=== PATIENT | female | born 1990 | race African-American/Black ===

== ENCOUNTER 2016-07-07 14:28 | Emergency (ER) | payer SELFPAY ==
[2016-07-07] MEDS ORDERED: DIPH/PERTUSS(ACELL)/TETANUS VAC/PF 0.5 ML SYR (>=10YO) IM ONE ×2 (14:35→18:34)
--- NOTE | 2016-07-07 14:35 | ER Document Report ---
ED Medical Screen (RME) - General Stated Complaint: HAND LACERATIONS Notes: 26 yo female c/o laceration to right hand and left hand. fish tank broke. 3cm laceration to right lateral hand. no active bleeding. smaller lacerations to left palm. Tetnus status not UTD TRAVEL OUTSIDE OF THE [place] IN LAST 30 DAYS: No - Related Data Allergies/Adverse Reactions: No Known Allergies Allergy (Verified 07/07/16 14:31) Past Medical History Renal/ Medical History: Reports: Hx Ovarian Cysts Psychiatric Medical History: Denies: Hx Depression Past Surgical History: Reports: Hx Dilation and Curettage, Hx Gynecologic Surgery - january 2013, L ovarian cyst removal 08/01/2014. - Immunizations Hx Diphtheria, Pertussis, Tetanus Vaccination: Yes
[2016-07-07] MEDS ORDERED: OXYCODONE-ACETAMINOPHEN 5-325 MG TABLET PO ONE (16:10)
[2016-07-07] MEDS ORDERED: KETOROLAC TROMETHAMINE 60 MG/2 ML SDV IM ONE (18:00)
[2016-07-07] MEDS ORDERED: LIDOCAINE 1% INJ-PF (10 MG/ML) 30 ML SDV INJ ONE (18:02)
[2016-07-07] MEDS ORDERED: HYDROCODONE/ACETAMINOPHEN 5-325 MG TABLET PO ONE (18:33)
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
[2016-07-07 20:19] VITALS: BP 122/68
== END 2016-07-07 19:12 | disposition home or self-care (01) ==
LOC: ER 14:28
PROC: 0HQFXZZ Repair Right Hand Skin, External Approach (ICD-10-PCS; principal; 2016-07-07)
DX: S61.412A Laceration without foreign body of left hand, initial encounter (principal); S61.411A Laceration without foreign body of right hand, initial encounter; Y04.0XXA Assault by unarmed brawl or fight, initial encounter; Z23 Encounter for immunization
CPT/HCPCS: 12002; 99283; 96372; 90471; 73120; 90715; J1885; J3490

== ENCOUNTER 2016-07-10 08:00 | Emergency (ER) | payer SELFPAY ==
--- NOTE | 2016-07-10 08:31 | ER Document Report ---
ED GI/ - General Chief Complaint: Abdominal Pain Stated Complaint: ABDOMINAL PAIN Notes: 26 yo female c/o right flank/RUQ pain x 2-3 days. pain is constant and sharp. aggravated w/ any movement, eating. reports fever 102 last night. +n/v/d. pt reports she drinks beer occasionally. last ETOH was 1/2 beer last week. pt was recently started on Keflex for hand laceration. TRAVEL OUTSIDE OF THE [place] IN LAST 30 DAYS: No - HPI Patient complains to provider of: Abdominal pain, Diarrhea, Vomiting Onset: Other - 3 days Timing/Duration: Gradual, Persistent Quality of pain: Sharp Pain Level: 5 Location: RUQ, Right flank Adult Front & Back Diagram: 1 - pain 2 - pain Vaginal bleeding (Compared to normal period): None Associated symptoms: Nausea. denies: Chest pain, Dysuria Exacerbated by: Movement, Food Relieved by: Denies Similar symptoms previously: No Recently seen / treated by doctor: Yes - ED for sutures - Related Data Allergies/Adverse Reactions: No Known Allergies Allergy (Verified 07/10/16 08:05) Past Medical History - General Information source: Patient - Social History Smoking Status: Current Every Day Smoker Chew tobacco use (# tins/day): Yes - 1/2ppd Frequency of alcohol use: Social Drug Abuse: None Lives with: Family Family History: Reviewed & Not Pertinent Patient has suicidal ideation: No Patient has homicidal ideation: No - Medical History Medical History: Negative Renal/ Medical History: Reports: Hx Ovarian Cysts. Denies: Hx Peritoneal Dialysis Psychiatric Medical History: Denies: Hx Depression Past Surgical History: Reports: Hx Dilation and Curettage, Hx Gynecologic Surgery - january 2013, L ovarian cyst removal 08/01/2014. - Immunizations Hx Diphtheria, Pertussis, Tetanus Vaccination: Yes Review of Systems - Review of Systems Constitutional: No symptoms reported EENT: No symptoms reported Cardiovascular: No symptoms reported Respiratory: No symptoms reported Gastrointestinal: See HPI, Abdominal pain, Vomiting Genitourinary: No symptoms reported Female Genitourinary: No symptoms reported Musculoskeletal: No symptoms reported Skin: No symptoms reported Hematologic/Lymphatic: No symptoms reported Neurological/Psychological: No symptoms reported Physical Exam - Vital signs Vitals: Temp Pulse Resp BP Pulse Ox 98.1 F 75 18 134/81 H 99 07/10/16 08:05 07/10/16 08:05 07/10/16 08:05 07/10/16 08:05 07/10/16 08:05 Interpretation: Normal - General General appearance: Alert In distress: Mild - tearful - HEENT Head: Normocephalic, Atraumatic Eyes: Normal Pupils: PERRL - Respiratory Respiratory status: No respiratory distress Chest status: Nontender Breath sounds: Normal Chest palpation: Normal - Cardiovascular Rhythm: Regular Heart sounds: Normal auscultation Murmur: No - Abdominal Inspection: Normal Distension: No distension Bowel sounds: Normal Tenderness: Tender - RUQ, right lateral flank Organomegaly: No organomegaly - Back Back: Normal, Nontender. No: CVA tenderness - Extremities General upper extremity: Normal inspection, Nontender, Normal color, Normal ROM , Normal temperature General lower extremity: Normal inspection, Nontender, Normal color, Normal ROM , Normal temperature, Normal weight bearing. No: Gopi's sign - Neurological Neuro grossly intact: Yes Cognition: Normal Orientation: AAOx4 João Coma Scale Eye Opening: Spontaneous João Coma Scale Verbal: Oriented João Coma Scale Motor: Obeys Commands João Coma Scale Total: 15 Speech: Normal Motor strength normal: LUE, RUE, LLE, RLE Sensory: Normal - Psychological Associated symptoms: Normal affect, Normal mood - Skin Skin Temperature: Warm Skin Moisture: Dry Skin Color: Normal Course - Re-evaluation Re-evalutation: 07/10/16 08:38 pt evaluated. labs, IVF and meds ordered. abdomen is soft, pt is afebrile. low suspicion for acute abdomen or sepsis. will continue to monitor. 07/10/16 09:59 labs unremarkable. urine showing small amount of blood. Lipase normal. low suspicion for acute cholcystitis, appendicitis, pancreatitis. will get renal US. 07/10/16 10:40 pt continues to complain of nausea after the zofran. pt refused Toradol saying it makes her more nauseated. and she is too nauseous to take PO percocet. 07/10/16 11:[address] unremarkable. with normal labs and normal CT, VSS, low suspicion for acute abdomen or sepsis, pt is stable for discharge and outpatient follow up. pt will be discharged with oral pain and anti nausea meds, and instructions to follow up with primary care if pain persists. pt agreeable with plan - Vital Signs Vital signs: Temp Pulse Resp BP Pulse Ox 98.1 F 75 18 134/81 H 99 07/10/16 08:05 07/10/16 08:05 07/10/16 08:05 07/10/16 08:05 07/10/16 08:05 - Laboratory Result Diagrams: 07/10/16 08:55 07/10/16 08:55 Laboratory results interpreted by me: 07/10/16 07/10/16 08:55 09:18 RBC 5.56 H Hgb 11.8 L MCV 67 L MCH 21.3 L MCHC 31.8 L RDW 14.5 H Urine Protein 100 H Urine Blood SMALL H Discharge - Discharge Clinical Impression: Abdominal pain Qualifiers: Abdominal location: right upper quadrant Qualified Code(s): R10.11 - Right upper quadrant pain Condition: Stable Disposition: HOME, SELF-CARE Instructions: Abdominal Pain ([facility]), Antinausea Medication ([facility]), Oral Narcotic Medication ([facility]) Additional Instructions: your labs and CT were normal today I do not see a cause for your discomfort take your pain med and anti nausea meds as needed and follow up with your primary care provider on Tuesday for further evaluation return to ER for any worsening of your condition Prescriptions: Oxycodone HCl/Acetaminophen [Percocet 5-325 mg Tablet] 1 - 2 tab PO ASDIR PRN # 15 tablet PRN Reason: Promethazine HCl [Phenergan 25 mg Tablet] 25 mg PO Q6H PRN #15 tablet PRN Reason:
[2016-07-10] MEDS ORDERED: NORMAL SALINE 1000 ML 1,000 ML IV ONE (08:32)
[2016-07-10] MEDS ORDERED: KETOROLAC TROMETHAMINE INJ/PF 30 MG/1 ML SDV IV ONE (08:41)
[2016-07-10] MEDS ORDERED: ONDANSETRON HCL INJ/PF 4 MG/2 ML SDV IV ONE (08:41)
[2016-07-10 09:11] LABS: ABSOLUTE BASOPHILS # (AUTO) 0.1 10^3/uL (0.0-0.2); ABSOLUTE EOSINOPHILS # (AUTO) 0.1 10^3/uL (0.0-0.6); ABSOLUTE LYMPHOCYTES (AUTO) 1.4 10^3/uL (0.5-4.7); ABSOLUTE NEUT (AUTO) 6.1 10^3/uL (1.7-8.2); BASOPHILS % (AUTO) 0.8 % (0-2); EOSINOPHILS % (AUTO) 1.4 % (0-6); HEMATOCRIT 37.1 % (36.0-47.0); HEMOGLOBIN 11.8 g/dL (12.0-15.5); HGB HCT DIFFERENCE -1.7; MEAN CORPUSCULAR HEMOGLOBIN 21.3 pg (27.0-33.4); MEAN CORPUSCULAR HGB CONC 31.8 g/dL (32.0-36.0); MEAN CORPUSCULAR VOLUME 67 fl (80-97); MONOCYTES % (AUTO) 11.4 % (3-13); RED BLOOD COUNT 5.56 10^6/uL (3.72-5.28); RED CELL DISTRIBUTION WIDTH 14.5 % (11.5-14.0); SEGMENTED NEUTROPHILS % (AUTO) 70.4 % (42-78); WHITE BLOOD COUNT 8.6 10^3/uL (4.0-10.5)
[2016-07-10 09:35] LABS: ALANINE AMINOTRANSFERASE 26 U/L (9-52); ALBUMIN 4.1 g/dL (3.5-5.0); ALKALINE PHOSPHATASE 40 U/L (38-126); ANION GAP 11 (5-19); ASPARTATE AMINO TRANSFERASE 18 U/L (14-36); BILIRUBIN,TOTAL 0.6 mg/dL (0.2-1.3); BLOOD UREA NITROGEN 8 mg/dL (7-20); CALCIUM 9.8 mg/dL (8.4-10.2); CARBON DIOXIDE 24 mmol/L (22-30); CHLORIDE 107 mmol/L (98-107); CREATININE RESULT 1.02 mg/dL (0.52-1.25); GLUCOSE 91 mg/dL (75-110); LIPASE 33.7 U/L (23-300); POTASSIUM 4.6 mmol/L (3.6-5.0); SODIUM 142.1 mmol/L (137-145); TOTAL PROTEIN 6.3 g/dL (6.3-8.2)
[2016-07-10 09:38] LABS: APPEARANCE,URINE SLIGHTLY-CLOUDY; BILIRUBIN,URINE NEGATIVE (NEGATIVE); GLUCOSE, URINE NEGATIVE (NEGATIVE); KETONES,URINE NEGATIVE (NEGATIVE); LEUKOCYTE ESTERASE,URINE NEGATIVE (NEGATIVE); NITRITE,URINE NEGATIVE (NEGATIVE); PROTEIN,URINE 100 mg/dL (NEGATIVE); URINE SPECIFIC GRAVITY 1.004; UROBILINOGEN,URINE NEGATIVE mg/dL (<2.0)
[2016-07-10] MEDS ORDERED: MORPHINE SULFATE 10 MG/ML INJ IV ONE (10:42)
[2016-07-10] MEDS ORDERED: METOCLOPRAMIDE HCL INJ/PF 10 MG/2 ML SDV IV ONE (10:42)
[2016-07-10] MEDS ORDERED: DIPHENHYDRAMINE HCL 50 MG/ML VIAL IV ONE (10:42)
[2016-07-10 12:03] VITALS: BP 127/76
== END 2016-07-10 11:55 | disposition home or self-care (01) ==
LOC: ER 08:00
DX: R10.11 Right upper quadrant pain (principal); R10.9 Unspecified abdominal pain; R50.9 Fever, unspecified; F17.210 Nicotine dependence, cigarettes, uncomplicated
CPT/HCPCS: 99284; 96361; 96374; 96375; 36415; 83690; 84703; 85025; 80053; 81001; 76380; J2765; J2270; J2405; J7030

== ENCOUNTER 2016-09-12 19:49 | Emergency (ER) | payer OTHER ==
[2016-09-12] MEDS ORDERED: OXYCODONE HCL IR 5 MG TABLET PO ONE (20:42)
[2016-09-12] MEDS ORDERED: KETOROLAC TROMETHAMINE 60 MG/2 ML SDV IM ONE (21:57)
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
[2016-09-12 22:38] VITALS: BP 132/78
== END 2016-09-12 22:37 | disposition home or self-care (01) ==
LOC: ER 19:49
DX: S16.1XXA Strain of muscle, fascia and tendon at neck level, initial encounter (principal); S20.219A Contusion of unspecified front wall of thorax, initial encounter; S46.919A Strain of unspecified muscle, fascia and tendon at shoulder and upper arm level, unspecified arm, initial encounter; V43.52XA Car driver injured in collision with other type car in traffic accident, initial encounter
CPT/HCPCS: 99284; 96372; 71020; 72070; 73030; 70450; 72125; L0120; J1885

== ENCOUNTER 2016-09-17 12:48 | Emergency (ER) | payer OTHER ==
[2016-09-17] MEDS ORDERED: ACETAMINOPHEN 325 MG TABLET PO ONE (13:02)
[2016-09-17] MEDS ORDERED: OXYCODONE-ACETAMINOPHEN 5-325 MG TABLET PO ONE (13:44)
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
[2016-09-17 15:14] VITALS: BP 123/72
== END 2016-09-17 15:18 | disposition home or self-care (01) ==
LOC: ER 12:48
DX: S29.012A Strain of muscle and tendon of back wall of thorax, initial encounter (principal); S63.91XA Sprain of unspecified part of right wrist and hand, initial encounter; S73.102A Unspecified sprain of left hip, initial encounter; R68.84 Jaw pain; V89.2XXA Person injured in unspecified motor-vehicle accident, traffic, initial encounter
CPT/HCPCS: 99283

== ENCOUNTER → 2018-08-08 | Outpatient (CLI) | payer OTHER ==
[2018-08-08 10:16] LABS: ABSOLUTE BASOPHILS # (AUTO) 0.1 10^3/uL (0.0-0.2); ABSOLUTE EOSINOPHILS # (AUTO) 0.1 10^3/uL (0.0-0.6); ABSOLUTE LYMPHOCYTES (AUTO) 1.4 10^3/uL (0.5-4.7); ABSOLUTE MONOCYTES (AUTO) 0.4 10^3/uL (0.1-1.4); ABSOLUTE NEUT (AUTO) 4.3 10^3/uL (1.7-8.2); HEMATOCRIT 37.2 % (36.0-47.0); HEMOGLOBIN 11.8 g/dL (12.0-15.5); LYMPHOCYTES % (AUTO) 21.5 % (13-45); MEAN CORPUSCULAR HEMOGLOBIN 21.7 pg (27.0-33.4); MEAN CORPUSCULAR HGB CONC 31.9 g/dL (32.0-36.0); MEAN CORPUSCULAR VOLUME 68 fl (80-97); MONOCYTES % (AUTO) 6.9 % (3-13); PLATELET COUNT 277 10^3/uL (150-450); RED BLOOD COUNT 5.46 10^6/uL (3.72-5.28); RED CELL DISTRIBUTION WIDTH 14.1 % (11.5-14.0); SEGMENTED NEUTROPHILS % (AUTO) 67.6 % (42-78); TOTAL CELLS COUNTED % (AUTO) 100 %; WHITE BLOOD COUNT 6.4 10^3/uL (4.0-10.5)
[2018-08-08 10:36] LABS: ALANINE AMINOTRANSFERASE 15 U/L (9-52); ALKALINE PHOSPHATASE 48 U/L (38-126); ANION GAP 8 (5-19); ASPARTATE AMINO TRANSFERASE 18 U/L (14-36); BILIRUBIN,DIRECT 0.3 mg/dL (0.0-0.4); BILIRUBIN,TOTAL 0.5 mg/dL (0.2-1.3); BLOOD UREA NITROGEN 15 mg/dL (7-20); CALCIUM 9.5 mg/dL (8.4-10.2); CARBON DIOXIDE 24 mmol/L (22-30); CHLORIDE 107 mmol/L (98-107); CHOLESTEROL 140.46 mg/dL (0-200); GLUCOSE 91 mg/dL (75-110); POTASSIUM 4.6 mmol/L (3.6-5.0); SODIUM 139.4 mmol/L (137-145); TOTAL PROTEIN 6.5 g/dL (6.3-8.2); TRIGLYCERIDES 60 mg/dL (<150)
[2018-08-08 10:50] LABS: DIRECT LDL 59 mg/dL (<100)
== END ==
LOC: OD 09:01
DX: K04.7 Periapical abscess without sinus (principal)
CPT/HCPCS: 36415; 80053; 80061; 84443; 85025

== ENCOUNTER 2018-08-20 10:56 | Emergency (ER) | payer SELFPAY ==
[2018-08-20 11:04] VITALS: BP 129/72
[2018-08-20] MEDS ORDERED: LIDOCAINE 2% VISCOUS SOLN 20 ML UDCUP PO ONE (11:06)
[2018-08-20] MEDS ORDERED: KETOROLAC TROMETHAMINE 60 MG/2 ML SDV IM ONE (11:10)
--- NOTE | 2018-08-20 11:13 | ER Document Report ---
HPI - HPI Time Seen by Provider: 08/20/18 11:06 Pain Level: 5 Notes: Patient is a 28-year-old female who presents to the ED complaining of left lower dental pain #19 6mos, with increased pain that started x2 days. She has not noticed any obvious abscess or purulent discharge. Patient states that he is still able to eat and drink, but does have a decreased p.o. intake due to the pain. She has tried some [id number] meds with minimal relief. She was evaluated last month and was placed on clindamycin which did seem to work for her family doctor, but has yet to be scheduled for a dental appointment. No other concerns or complaints. Denies any headache, fever, head injury, neck pain, hoarseness, drooling, URI, sore throat, chest pain, palpitations, syncope, cough, shortness of breath, wheeze, dyspnea, abdominal pain, nausea/vomiting/diarrhea, urinary retention, dysuria, hematuria, or rash. - ROS Systems Reviewed and Negative: Yes All other systems reviewed and negative - REPRODUCTIVE Reproductive: DENIES: : Past Medical History - Social History Smoking Status: Unknown if Ever Smoked Family History: Reviewed & Not Pertinent Renal/ Medical History: Reports: Hx Ovarian Cysts. Denies: Hx Peritoneal Dialysis Psychiatric Medical History: Denies: Hx Depression Past Surgical History: Reports: Hx Dilation and Curettage, Hx Gynecologic Surgery - january 2013, L ovarian cyst removal 08/01/2014. - Immunizations Hx Diphtheria, Pertussis, Tetanus Vaccination: Yes Vertical Provider Document - CONSTITUTIONAL Agree With Documented VS: Yes Notes: PHYSICAL EXAMINATION: GENERAL: Well-appearing, well-nourished and in no acute distress. HEAD: Atraumatic, normocephalic. EYES: Pupils equal round and reactive to light, extraocular movements intact, sclera anicteric, conjunctiva are normal. ENT: EAC clear b/l. TM's intact b/l without erythema, fluid, or perforation. Nares patent and without discharge. oropharynx clear without exudates. No tonsilar hypertrophy or erythema. Moist mucous membranes. No sinus tenderness. Uvula midline. No palatine shift. No tongue protrusion. No respiratory compromise. Mouth: Poor dentition. + moderate decay and mild gingivitis. No obvious abscess or discharge noted. No facial swelling. + tenderness to tooth #19. NECK: Normal range of motion, supple without lymphadenopathy. No rigidity/meningismus. LUNGS: Breath sounds clear to auscultation bilaterally and equal. No wheezes rales or rhonchi. HEART: Regular rate and rhythm without murmurs, rubs, gallops. NEUROLOGICAL: Cranial nerves grossly intact. Normal speech, normal gait. Normal sensory, motor exams PSYCH: Normal mood, normal affect. SKIN: Warm, Dry, normal turgor, no rashes or lesions noted. - INFECTION CONTROL TRAVEL OUTSIDE OF THE [place] IN LAST 30 DAYS: No Course - Re-evaluation Re-evalutation: 08/20/18 11:12 Patient is an afebrile, well-hydrated, 28-year-old female who presents to the ED with dental pain, suspect nerve root etiology versus infection. Vitals are acceptable. PE is otherwise unremarkable. No I&D, labs, or imaging warranted at this time based on H&P. Viscous lidocaine dispensed today. Toradol given. I will send her home with a prescription for penicillin. Low suspicion for any meningitis, sepsis, peritonsillar/pharyngeal abscess, respiratory compromise, Deric's, temporal arteritis, or other emergent systemic condition at this time. Patient is aware this condition can change from initial presentation and she needs to monitor symptoms closely. Conservative measures otherwise for s ymptoms. Call to schedule an appointment with a dentist for further evaluation and management. Recheck with your PCM this week as well. Return to the ED with any worsening/concerning symptoms otherwise as reviewed in discharge. Patient is in agreement. - Vital Signs Vital signs: Temp Pulse Resp BP Pulse Ox 98.3 F 62 16 129/72 H 100 08/20/18 11:02 08/20/18 11:02 08/20/18 11:02 08/20/18 11:02 08/20/18 11:02 Discharge - Discharge Clinical Impression: Pain, dental Condition: Stable Disposition: HOME, SELF-CARE Instructions: Penicillin V K ([facility]), Toothache ([facility]) Additional Instructions: [place] and floss twice daily Maintain fluid intake Take antibiotics as directed Mouthwash, salt water gargles, peroxide rinse as needed Tylenol/ibuprofen as needed Recheck with PCM this week Call today/tomorrow and schedule an appointment with your dentist for further evaluation Return to the ED with any worsening symptoms and/or development of fever, headache, facial swelling, swelling of lips/tongue/throat, trouble swallowing, drooling, hoarseness, neck pain/stiffness, chest pain, palpitations, syncope, shortness of breath, trouble breathing, abdominal pain, n/v/d, numbness/tingling, or other worsening symptoms that are concerning to you. Prescriptions: Penicillin V Potassium [Penicillin Vk 250 mg Tablet] 500 mg PO BID #40 tablet Forms: Elevated Blood Pressure Referrals: [facility] [Primary Care Provider] - Follow up as needed [facility] [Provider Group] - Follow up as needed
== END 2018-08-20 11:50 | disposition home or self-care (01) ==
LOC: ER 10:56
DX: K08.9 Disorder of teeth and supporting structures, unspecified (principal)
CPT/HCPCS: 99282; 96372; J1885; J3490

== ENCOUNTER 2018-08-21 11:05 | Emergency (ER) | payer SELFPAY ==
[2018-08-21] MEDS ORDERED: PENICILLIN V POTASSIUM 500 MG TABLET PO ONE (12:26)
[2018-08-21] MEDS ORDERED: HYDROCODONE/ACETAMINOPHEN 5-325 MG TABLET PO ONE (12:27)
--- NOTE | 2018-08-21 12:27 | ER Document Report ---
ED Medical Screen (RME) - General Chief Complaint: Dental Injury Stated Complaint: MOUTH PAIN Time Seen by Provider: 08/21/18 12:15 Primary Care Provider: [facility] [Primary Care Provider] - Follow up as needed Mode of Arrival: Ambulatory Information source: Patient Notes: Patient is a 28-year-old female who presents to the emergency department with co mplaints of left lower dental pain. Patient reports she was here yesterday, prescribed penicillin, states she was not able to last picker the prescription yet. Patient does report she has been taking leftover clindamycin from a previous abscessed tooth. Patient is requesting a dental block at this time. Patient denies any fevers. Exam: Patient tearful. No drainable abscess identified during limited exam in triage. I have greeted and performed a rapid initial assessment of this patient. A comprehensive ED assessment and evaluation of the patient, analysis of test results and completion of the medical decision making process will be conducted by additional ED providers. Dictation of this chart was performed using voice recognition software; therefore, there may be some unintended grammatical errors. TRAVEL OUTSIDE OF THE [place] IN LAST 30 DAYS: No - Related Data Allergies/Adverse Reactions: No Known Allergies Allergy (Verified 08/21/18 11:14) Past Medical History - Social History Chew tobacco use (# tins/day): No Frequency of alcohol use: Social Drug Abuse: None Renal/ Medical History: Reports: Hx Ovarian Cysts. Denies: Hx Peritoneal Dialysis Psychiatric Medical History: Denies: Hx Depression Past Surgical History: Reports: Hx Dilation and Curettage, Hx Gynecologic Surgery - january 2013, L ovarian cyst removal 08/01/2014. - Immunizations Hx Diphtheria, Pertussis, Tetanus Vaccination: Yes Physical Exam - Vital signs Vitals: Temp Pulse Resp BP Pulse Ox 98.7 F 69 16 140/81 H 100 08/21/18 11:20 08/21/18 11:20 08/21/18 11:20 08/21/18 11:20 08/21/18 11:20 Course - Vital Signs Vital signs: Temp Pulse Resp BP Pulse Ox 98.7 F 69 16 140/81 H 100 08/21/18 11:20 08/21/18 11:20 08/21/18 11:20 08/21/18 11:20 08/21/18 11:20 Doctor's Discharge - Discharge Referrals: [facility] [Primary Care Provider] - Follow up as needed
[2018-08-21] MEDS ORDERED: BUPIVACAINE HCL 0.5 % INJ/PF 30 ML SDV INJ ONE (12:58)
[2018-08-21] MEDS ORDERED: LIDOCAINE 2% JELLY 30 ML TUBE TOP ONE (12:59)
--- NOTE | 2018-08-21 13:07 | ER Document Report ---
ED General - General Chief Complaint: Dental Injury Stated Complaint: MOUTH PAIN Time Seen by Provider: 08/21/18 12:15 Primary Care Provider: [facility] [Primary Care Provider] - Follow up as needed Mode of Arrival: Ambulatory Notes: 28-year-old female presents left side of face and jaw pain originating from a tooth of the left lower molar which broke several months ago. She had a consequent mice and then came back here yesterday and was given penicillin was unable to fill it. She was given Toradol needed but no pain meds. She seen 3 different dentists none of him can take the tooth out for a couple of weeks. Denies trouble swallowing trismus or fever. Her left ear hurts too. TRAVEL OUTSIDE OF THE [place] IN LAST 30 DAYS: No - Related Data Allergies/Adverse Reactions: No Known Allergies Allergy (Verified 08/21/18 11:14) Past Medical History - General Information source: Patient - Social History Smoking Status: Current Every Day Smoker Chew tobacco use (# tins/day): No Smoking Education Provided: Yes - The patient ED visit today was directly related to their abuse of tobacco. Frequency of alcohol use: Social Drug Abuse: None Family History: Reviewed & Not Pertinent Patient has suicidal ideation: No Patient has homicidal ideation: No Renal/ Medical History: Reports: Hx Ovarian Cysts. Denies: Hx Peritoneal Dialysis Psychiatric Medical History: Denies: Hx Depression Past Surgical History: Reports: Hx Dilation and Curettage, Hx Gynecologic Surgery - january 2013, L ovarian cyst removal 08/01/2014. - Immunizations Hx Diphtheria, Pertussis, Tetanus Vaccination: Yes Review of Systems - Review of Systems Notes: REVIEW OF SYSTEMS GEN: Denies fever, chills, weight loss ENT: Face pain tooth pain ear pain EYES: Denies blurry vision, eye pain, discharge CV: Denies chest pain, palpitations, edema RESP: Denies cough, shortness of breath, wheezing GI: Denies abdominal pain, nausea, vomiting, diarrhea MSK: Denies joint pain/swelling, edema, SKIN: Denies rash, skin lesions LYMPH: Denies swollen glands/lymph nodes NEURO: Denies headache, focal weakness or numbness, dizziness PSYCH: Denies depression, suicidal or homicidal ideation PHYSICAL EXAMINATION General: No acute distress, well-nourished Head: Atraumatic, normocephalic ENT: Mucous members moist. No trismus. Uvula midline. Left lower molar is tender. There is no buccal swelling or appreciable swelling or abscess in the vestibule. T Eyes: Conjunctiva normal, pupils equal, lids normal Neck: No JVD, supple, no guarding CVS: Normal rate, regular rhythm, no murmurs Resp: No resp distress, equal and normal breath sounds bilaterally GI: Nondistended, soft, no tenderness to palpation, no rebound or guarding Ext: No deformities, no edema, normal range of motion in upper and lower ext Back: No CVA or midline TTP Skin: No rash, warm Lymphatic: No lymphadeopathy noted Neuro: Awake, alert. Face symmetric. GCS 15. Physical Exam - Vital signs Vitals: Temp Pulse Resp BP Pulse Ox 98.7 F 69 16 140/81 H 100 08/21/18 11:20 08/21/18 11:20 08/21/18 11:20 08/21/18 11:20 08/21/18 11:20 Course - Re-evaluation Re-evalutation: 08/21/18 13:06 Presents with dental pain no fever no trismus no sign of deep space infection. She is in significant pain and refractory to Motrin. She was given penicillin by the triage physician as well as a dose of pain medicine. I offered her block. We will do that. Already has antibiotics. Added Percocet. : Dental block Indication: Severe tooth pain Consent: Verbal Injectate: 0.5% Marcaine 2 cc Patient was placed in a sitting position. Lidocaine viscus was placed onto a pledget which was placed in the left lower jaw vegetable. I then performed a supraperiosteal block using the above injectate. Patient felt almost immediate relief of pain. Patient tolerated procedure well. - Vital Signs Vital signs: Temp Pulse Resp BP Pulse Ox 98.7 F 69 16 140/81 H 100 08/21/18 11:20 08/21/18 11:20 08/21/18 11:20 08/21/18 11:20 08/21/18 11:20 Discharge - Discharge Clinical Impression: Pain, dental Condition: Good Disposition: HOME, SELF-CARE Instructions: Oral Narcotic Medication ([facility]), [facility] Prescriptions: Oxycodone HCl/Acetaminophen [Percocet 5-325 mg Tablet] 1 - 2 tab PO Q4H PRN #15 tablet PRN Reason: Referrals: [facility] [Primary Care Provider] - Follow up as needed
[2018-08-21 13:58] VITALS: BP 141/92
== END 2018-08-21 14:13 | disposition home or self-care (01) ==
LOC: ER 11:05
DX: K08.89 Other specified disorders of teeth and supporting structures (principal); T36.0X6A Underdosing of penicillins, initial encounter; Z91.128 Patient's intentional underdosing of medication regimen for other reason; Z91.14 Patient's other noncompliance with medication regimen; H92.02 Otalgia, left ear; F17.200 Nicotine dependence, unspecified, uncomplicated
CPT/HCPCS: 99282; 64400; J3490

== ENCOUNTER 2018-10-07 02:12 | Emergency (ER) | payer SELFPAY ==
[2018-10-07 04:16] VITALS: BP 123/85
[2018-10-07] MEDS ORDERED: LIDOCAINE 1%/EPINEPHRINE INJ 20 ML VIAL INJ ONE (05:00)
--- NOTE | 2018-10-07 05:08 | ER Document Report ---
ED Wound - General Chief Complaint: Laceration Stated Complaint: ARM INJURY Primary Care Provider: [facility] [Provider Group] - Follow up as needed TRAVEL OUTSIDE OF THE [place] IN LAST 30 DAYS: No - HPI Notes: Patient is a 28-year-old female who presents to the emergency department for a laceration. She states that the laceration was self-inflicted to the right forearm which occurred around 1-1:30 AM this morning. Patient states that she has been under a lot of stress at work and was feeling sad. Patient denied and currently denies suicidal ideation. She denies a specific thought out plan to hurt herself. Patient states that she does have a history of cutting herself years ago but that that situation was completely different and she does not feel like hurting herself "like that." Patient states that while she was doing it she used a steak knife that was clean, and that it "did not feel real, and when I looked down I couldn't believe that I had actually cut myself." Patient states that she started a new control that is high dose 3 weeks ago and since then she has been more emotional. Patient states she has a history of being on control pills in the past that have caused her to have mood swings and feelings of sadness. Patient does admit to drinking two Aguilar light beers before the incident. Patient reports that her tetanus shot is up-to-date. Patient states she does have a history of situational depression years ago in which she was placed on Wellbutrin. States she does not take Wellbutrin anymore as her doctor had taken her off of it because she did not like the side effects. - Related Data Allergies/Adverse Reactions: No Known Allergies Allergy (Verified 08/21/18 11:14) Past Medical History - General Information source: Patient - Social History Smoking Status: Unknown if Ever Smoked Frequency of alcohol use: Social Drug Abuse: None Lives with: Spouse/Significant other Family History: Reviewed & Not Pertinent - Medical History Medical History: Negative - Past Medical History Cardiac Medical History: Reports: None Pulmonary Medical History: Reports: None EENT Medical History: Reports: None Neurological Medical History: Reports: None Endocrine Medical History: Reports: None Renal/ Medical History: Reports: Hx Ovarian Cysts. Denies: Hx Peritoneal Dialysis Malignancy Medical History: Reports: None GI Medical History: Reports: None Musculoskeletal Medical History: Reports None Skin Medical History: Reports None Psychiatric Medical History: Reports: Hx Depression - "History of situational depression years ago" Traumatic Medical History: Reports: None Infectious Medical History: Reports: None Past Surgical History: Reports: Hx Dilation and Curettage, Hx Gynecologic Surg juan - january 2013, L ovarian cyst removal 08/01/2014. - Immunizations Hx Diphtheria, Pertussis, Tetanus Vaccination: Yes Review of Systems - Review of Systems Constitutional: No symptoms reported EENT: No symptoms reported Cardiovascular: No symptoms reported Respiratory: No symptoms reported Gastrointestinal: No symptoms reported Genitourinary: No symptoms reported Female Genitourinary: No symptoms reported Musculoskeletal: No symptoms reported Skin: See HPI Hematologic/Lymphatic: No symptoms reported Neurological/Psychological: See HPI Physical Exam - Vital signs Vitals: Temp Pulse Resp BP Pulse Ox 98.4 F 83 20 133/79 H 100 10/07/18 03:44 10/07/18 03:44 10/07/18 03:44 10/07/18 03:44 10/07/18 03:44 Interpretation: Normal - Notes Notes: GENERAL: Well-appearing, well-nourished and in no acute distress. HEAD: Atraumatic, normocephalic. EYES: Pupils equal round and reactive to light, extraocular movements intact, sclera anicteric, conjunctiva are normal. ENT: TMs normal, nares patent, oropharynx clear without exudates. Moist mucous membranes. NECK: Normal range of motion, supple without lymphadenopathy or JVD. LUNGS: Breath sounds clear to auscultation bilaterally and equal. No wheezes rales or rhonchi. HEART: Regular rate and rhythm without murmurs, rubs or gallops. ABDOMEN: Soft, nontender, normoactive bowel sounds. No guarding, no rebound. No masses appreciated. EXTREMITIES: 4 cm well approximated laceration to the lower right forearm. No active bleeding. Only adipose tissue visible. + strong right radial pulse, + sensation to all fingers, normal flexion and extension of all five fingers. Normal opposition. NEUROLOGICAL: Cranial nerves II through XII grossly intact. Normal speech, normal gait. PSYCH: Normal mood, normal affect. SKIN: Warm, Dry, normal turgor, no rashes or lesions noted. Course - Re-evaluation Re-evalutation: 10/07/18 06:00 After laceration repair I privately spoke with significant other who was at bedside. The significant other states that him and the patient were verbally arguing in the living room when she got up grabbed a knife, he states that the patient motioned the knife towards her forearm when she obtained the laceration. The significant other states that immediately after cutting herself she stated "I did not mean to do that, I do not know what I was thinking." Significant other states that she has repeated multiple times on the way to the hospital that she did not need to do that and that her mood swings have been severe since starting the control. Significant other states that this in fact is true she seems more on edge. Significant other states that she was fine until she started the pills. The significant other states that he does not believe the patient was attempting to harm herself and that he feels comfortable taking her home and staying with her. He states that he will make sure that she follows up with her primary care physician as well as the health department to change her control pills. Patient did states she was going to stop the pills. Informed her if she does stop the control pills another form of control is needed if she is sexually active. Patient verbalized understanding. While at the bedside for the laceration repair patient conversing normally, in good spirits, repeating "I cannot believe I did this, I have not been myself since taking the control pills." Patient states she does not have suicidal thoughts or a thought out plan to hurt herself. - Vital Signs Vital signs: Temp Pulse Resp BP Pulse Ox 97.9 F 71 20 123/85 98 10/07/18 04:15 10/07/18 04:15 10/07/18 04:15 10/07/18 04:15 10/07/18 04:15 Procedures - Laceration/Wound Repair Right Lower Arm Time completed: 05:30 Wound length (cm): 4 Wound's Depth, Shape: Superficial, Linear Laceration pre-procedure: Sterile PPE donned, Sterile drapes applied, Shur-Clens applied Anesthetic type: 1% Lidocaine w/epi Volume Anesthetic (mLs): 4 Wound explored: Clean Irrigated w/ Saline (mLs): 250 Wound Repaired With: Sutures Suture Size/Type: 4:0, Nylon Number of Sutures: 9 Layer Closure?: No Post-procedure wound care: Sterile dressing applied Complications: No Adult Front & Back picture: 1 - 4 cm lac Discharge - Discharge Clinical Impression: Injury, self-inflicted, Laceration Condition: Stable Disposition: HOME, SELF-CARE Instructions: Laceration Care ([facility]) Additional Instructions: Today you were seen in the emergency department after a self-inflicted laceration to your right forearm. The wound was irrigated copiously with anti septic soap and saline. The wound was then closed with 9 sutures. Please keep the dressing on for the next 24-48 hrs, after that you may remove the dressing and change as necessary. Keep the wound clean and dry. Please return in the next 7-10 days to have these sutures removed. Self-inflicted harm is a serious issue. After a long discussion with you and your significant other separately and privately you have stated that since starting the high dose control pills three weeks ago your moods have been off and you have stated you are on edge. You continue to deny suicidal thoughts. You have stated you are going to stop the control pills. If you do so abstain from sexual intercourse and/or use protection. Please follow up with the Health Department as soon as possible for your control needs and follow up with the [facility] for your mental health as you had stated you have been there before. Please return to the ER if you have suicidal thoughts, severe depression - develop a fever, redness or foul smell odor from the laceration site or any othe r concerning signs or symptoms. Laceration Care Your laceration has been sutured to keep the skin edges aligned during healing. The time of suture removal depends on the nature and location of your cut. Please follow the care instructions the doctor has outlined for you and return for further care, according to the schedule you've been given. Keep the wound and dressing clean. Unless you were told otherwise, you may shower daily, blotting the wound dry with a clean, unused towel. At other times, If the dressing gets wet or blood soaked, remove it and blot the wound dry, then reapply a new dressing. Unless you were instructed otherwise, dressings should be changed at least daily. If any signs of infection occur (swelling, redness, increasing tenderness, red streaks, tender lumps in the armpit or groin above the laceration, or fever), see the doctor immediately. Referrals: [facility] [Provider Group] - Follow up as needed
== END 2018-10-07 07:01 | disposition home or self-care (01) ==
LOC: ER 02:12
PROC: 0HQDXZZ Repair Right Lower Arm Skin, External Approach (ICD-10-PCS; principal; 2018-10-07)
DX: S51.811A Laceration without foreign body of right forearm, initial encounter (principal); X78.9XXA Intentional self-harm by unspecified sharp object, initial encounter
CPT/HCPCS: 99282; 12002; J3490

== ENCOUNTER → 2019-11-05 | Outpatient (CLI) | payer SELFPAY ==
--- NOTE | 2019-11-05 12:38 | RADIOLOGY REPORT (SQ) ---
EXAM DESCRIPTION: U/S [id number] TRNABD 1GES W/ODOP IMAGES COMPLETED DATE/TIME: 11/05/2019 10:45 am REASON FOR STUDY: ENCNTR FOR SUPRVSN OF NORMAL FIRST PREG, FIRST TRIMESTER Z34.01 ENCNTR FOR SUPRVS N OF NORMAL FIRST PREG, FIRST TRIMES LMP unknown COMPARISON: None. TECHNIQUE: Transvaginal and transabdominal static and realtime grayscale images acquired of the pelv is. Additional selected spectral and color Doppler images recorded. All images stored on PACs. bHCG: Unknown CLINICAL DATES: Unknown LIMITATIONS: None. FINDINGS: FETUS: Single Living intrauterine . ULTRASOUND EGA: 6 weeks 0 days ULTRASOUND CANDICE: 06/30/2020 EFW: Not applicable less than 20 weeks. CRL: 0.33 cm FHR: 73 beats per minute. SURVEY: No visualized anomalies. AMNIOTIC FLUID: Adequate amount. PLACENTA: Not yet developed due to early gestation. SUBCHORIONIC BLEED: No SIZE OF BLEED: Not applicable. UTERUS: No masses. No anomalies. CERVICAL LENGTH: 2.4 cm Closed. RIGHT ADNEXA: Normal ovary with normal vascular flow. 2.8 x 2 x 1.4 cm. No adnexal free fluid. No adnexal masses. LEFT ADNEXA: 4.8 x 6.5 x 4.2 cm. There is a complex cyst measuring 4.5 x 5 x 3.5 cm. No adnexal free fluid. No adnexal masses. FREE FLUID: None. OTHER: Questionable complex area protruding into the gestational sac. IMPRESSION: 6 weeks 0 days Intrauterine gestation with bradycardia. heart rate is 73. Questi onable complex area protruding into the gestational sac. Complex left ovarian cyst. Follow-up as cl inically indicated. Trimester of : First trimester - 0 to 13 weeks. TECHNICAL DOCUMENTATION: JOB ID: [id number] 2010 [employer]- All Rights Reserved rev-09/30 Reading location - IP/workstation name: [email or web address]
== END ==
LOC: RAD 10:07
PROVIDERS: ATTEND Nurse Practitioner Family
DX: Z34.01 Encounter for supervision of normal first pregnancy, first trimester (principal)
CPT/HCPCS: 76801

== ENCOUNTER 2020-04-08 10:28 | Outpatient (CLI) | payer MEDICAID ==
[2020-04-08] MEDS ORDERED: BETAMET ACET/BETAMET NA INJ 6 MG/1 ML ONE (11:21)
[2020-04-08] MEDS ORDERED: BETAMET ACET/BETAMET NA INJ 6 MG/1 ML IM ONE (11:29)
[2020-04-08 11:52] LABS: T.VAGINALIS (WET MOUNT) NO TRICHOMONAS SEEN; YEAST (WET MOUNT) NO YEAST SEEN
[2020-04-08 11:55] LABS: WBCS (WET MOUNT) RARE WBCS SEEN
[2020-04-08 12:04] LABS: APPEARANCE,URINE CLEAR; BILIRUBIN,URINE NEGATIVE (NEGATIVE); COLOR,URINE STRAW; GLUCOSE, URINE NEGATIVE (NEGATIVE); KETONES,URINE NEGATIVE (NEGATIVE); LEUKOCYTE ESTERASE,URINE NEGATIVE (NEGATIVE); NITRITE,URINE NEGATIVE (NEGATIVE); PROTEIN,URINE NEGATIVE (NEGATIVE); URINE SPECIFIC GRAVITY 1.009; UROBILINOGEN,URINE NEGATIVE mg/dL (<2.0)
[2020-04-08 12:10] LABS: URINE AMPHETAMINES SCREEN NEGATIVE; URINE BARBITURATES SCREEN NEGATIVE; URINE BENZODIAZEPINES SCREEN NEGATIVE; URINE COCAINE SCREEN NEGATIVE; URINE METHADONE SCREEN NEGATIVE; URINE PHENCYCLIDINE SCREEN NEGATIVE
--- NOTE | 2020-04-08 12:23 | PDOC TRANSFER SUMMARY ---
General Admission Date: 04/08/20 Transfer Date: 04/08/20 Accepting Facility: [facility] Accepting Physician: Dr. Wright, OB attending Resuscitation Status: Full Code - Transfer Diagnosis (1) Intrauterine growth restriction (IUGR) affecting care of mother, third trimester, single gestation Is this a current diagnosis for this admission?: Yes (2) Oligohydramnios antepartum Is this a current diagnosis for this admission?: Yes (3) elevated umbilical doppler Is this a current diagnosis for this admission?: Yes - Transfer Medications Home Medications: Acetaminophen [Tylenol 325 mg Tablet] 650 mg PO Q4HP PRN 04/08/20 Pnv No.95/Ferrous Fum/Folic AC [ Caplet] 1 each PO DAILY 04/08/20 Transfer Medications: Current Medications Betamethasone Acet/Betameth SodPhos (Betamet Acet/Betamet Na Inj 6 Mg/1 Ml) 12 mg IM NOW ONE Stop: 04/08/20 11:30 - Allergies Allergies/Adverse Reactions: No Known Allergies Allergy (Verified 04/08/20 10:37) Hospital Course Hospital Course: 29 yo @ 28 1/7 wks. patient was sent from office due to concerns found on routine OB follow up sono that included severe growth restriction of less than 3% and severe oligohydramnios of 1.36 SDP. The patient denies any symptoms of contractions or of PROM. I reviewed with her my concerns for possible PROM based on sono images. Have obtained a fern as well as vaginal infections swabs for assessment. I spoke with LILLIAN Hart from [place] who agreed with me regarding transfer of patient based on her sono findings especially in light of the elevated dopplers. I called the [facility] transfer center to initiate transfer and Dr. Wright agreed to accept. (Thank you Dr. Wright.) I will await results of fern test and begin antibiotics and Magnesium based on those results. IV bolus and fluids have been initiated. Physical Exam Vital Signs: Intake & Output 04/07/20 04/08/20 04/09/20 06:59 06:59 06:59 Weight 90.5 kg General appearance: PRESENT: no acute distress, cooperative Plan Discharge Plan: transfer to [facility] with Dr. Wright and the OB service. Patient counseled that delivery may be warrented based on her progress. I also counseled that if condition improves and monitoring is reassuring that she may possibly be discharged with close follow up. She voiced understanding of counseling. Nicotine patch was ordered to assist with patient cravings.
[2020-04-08 12:25] LABS: URINE MARIJUANA (THC) SCREEN UNCONFIRMED POSITIVE
[2020-04-08] MEDS ORDERED: NICOTINE 21 MG/24 HR PATCH.TD24 TD ONE (13:00)
[2020-04-08 13:26] LABS: CHLAM PCR NOT DETECTED (NOT DETECT)
== END 2020-04-08 15:23 | disposition short-term general hospital (02) ==
LOC: LC 10:28
PROVIDERS: ATTEND Obstetrics & Gynecology
DX: O41.02X0 Oligohydramnios, second trimester, not applicable or unspecified (principal); Z3A.28 28 weeks gestation of pregnancy
CPT/HCPCS: 87210; 82962; 81001; 87081; 80307; 87491; 87591; 59899; Q0114; G0480 ×2; J0702; J3490; 80349; 94760; 96372

== ENCOUNTER 2020-04-14 18:18 | Inpatient (IN) | payer MEDICAID ==
[2020-04-14] MEDS ORDERED: RINGERS SOLUTION,LACTATED 1,000 ML IV PRN (18:30)
[2020-04-14] MEDS ORDERED: RINGERS SOLUTION,LACTATED 1,000 ML IV ONE (18:30)
[2020-04-14 19:17] LABS: APPEARANCE,URINE SLIGHTLY-CLOUDY; BILIRUBIN,URINE NEGATIVE (NEGATIVE); COLOR,URINE YELLOW; GLUCOSE, URINE NEGATIVE (NEGATIVE); KETONES,URINE NEGATIVE (NEGATIVE); LEUKOCYTE ESTERASE,URINE NEGATIVE (NEGATIVE); NITRITE,URINE NEGATIVE (NEGATIVE); PROTEIN,URINE 100 mg/dL (NEGATIVE); URINE SPECIFIC GRAVITY 1.028
[2020-04-14] MEDS ORDERED: NICOTINE 14 MG/24 HR PATCH.TD24 TD PRN (19:28)
[2020-04-14 19:31] LABS: ABSOLUTE BASOPHILS # (AUTO) 0.2 10^3/uL (0.0-0.2); ABSOLUTE EOSINOPHILS # (AUTO) 0.1 10^3/uL (0.0-0.6); ABSOLUTE LYMPHOCYTES (AUTO) 3.5 10^3/uL (0.5-4.7); ABSOLUTE MONOCYTES (AUTO) 1.3 10^3/uL (0.1-1.4); BASOPHILS % (AUTO) 1.3 % (0-2); EOSINOPHILS % (AUTO) 0.6 % (0-6); HEMATOCRIT 39.4 % (36.0-47.0); HEMOGLOBIN 12.5 g/dL (12.0-15.5); LYMPHOCYTES % (AUTO) 25.1 % (13-45); MEAN CORPUSCULAR HEMOGLOBIN 22.1 pg (27.0-33.4); MEAN CORPUSCULAR HGB CONC 31.7 g/dL (32.0-36.0); MEAN CORPUSCULAR VOLUME 70 fl (80-97); PLATELET COUNT 304 10^3/uL (150-450); RED BLOOD COUNT 5.66 10^6/uL (3.72-5.28); RED CELL DISTRIBUTION WIDTH 15.2 % (11.5-14.0); TOTAL CELLS COUNTED % (AUTO) 100 %
[2020-04-14 19:35] LABS: URINE AMPHETAMINES SCREEN NEGATIVE; URINE BARBITURATES SCREEN NEGATIVE; URINE BENZODIAZEPINES SCREEN NEGATIVE; URINE COCAINE SCREEN NEGATIVE; URINE METHADONE SCREEN NEGATIVE; URINE PHENCYCLIDINE SCREEN NEGATIVE
[2020-04-14 19:39] LABS: URINE MARIJUANA (THC) SCREEN UNCONFIRMED POSITIVE
[2020-04-14 19:43] LABS: UR PRO/CREAT RATIO RESULT 0.1 mg/mg (0.0-0.2); URINE CREATININE 283.1 mg/dL (16-327); URINE PROTEIN 19.9 mg/dL (<12)
[2020-04-14 19:49] LABS: ALKALINE PHOSPHATASE 95 U/L (38-126); ANION GAP 5 (5-19); ASPARTATE AMINO TRANSFERASE 22 U/L (14-36); BILIRUBIN,DIRECT 0.1 mg/dL (0.0-0.4); BILIRUBIN,TOTAL 0.3 mg/dL (0.2-1.3); BLOOD UREA NITROGEN 11 mg/dL (7-20); CALCIUM 9.7 mg/dL (8.4-10.2); CARBON DIOXIDE 28 mmol/L (22-30); CHLORIDE 98 mmol/L (98-107); GLUCOSE 84 mg/dL (75-110); POTASSIUM 4.1 mmol/L (3.6-5.0); TOTAL PROTEIN 6.7 g/dL (6.3-8.2); URIC ACID 3.7 mg/dL (2.5-6.2)
--- NOTE | 2020-04-14 20:05 | Admission Physical ---
Datetime Report Generated by CPN: 04/14/2020 20:04 CURRENT ADMISSION Chief Complaint: Sent from OB Office for Evaluation and Treatment - Please Specify Chief Complaint Other: Sent from Dr. Cramer's office for evaluation for preeclampsia, management of severe b/ps and management of IUFD noted on US today in her office. Indication for Induction: PreEclampsia; Demise Admit Impression : , Intrauterine ; Demise Admit Plan: Admit to Unit; Initiate Labor Induction Protocol ALLERGIES Medication Allergies: No Medication Allergies: No Known Allergies (04/14/2020) Latex: Unknown OBSTETRICAL HISTORY EDC: 06/30/2020 00:00 : 3 Para: 0 Term: 0 : 0 SAB: 0 IAB: 2 Ectopic: 0 Livin Cesareans: 0 VBACs: 0 Multiple Births: 0 Gestational Diabetes: Unknown Rh Sensitization: No Incompetent Cervix: No BIBIANA: No Infertility: No ART Treatment: No Uterine Anomaly: No (Annotations: Data stored by CPN on behalf of user) IUGR: No Hx Previous C/S: No Macrosomia: No Hx Loss/Stillborn: No PIH: Yes Hx : No Placenta Previa/Abruption: No Depression/PP Depression: No PTL/PROM: No Post Hemorrhage: No Current Procedures: Ultrasound Obstetrical History Comments: 1-TAB 2012 2-TAB 2014 3-current 2014-Ovarian cyst removal SEE RECORDS Alcohol: Yes Alcohol Frequency: Occasional Marijuana : No Cocaine: No Other Illicit Drugs: No Cigarettes: Current Everyday Smoker. 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 Heart Disease: No Hosp/Surgery: Yes Autoimmune Disorder: No Anesthetic Complications: No Kidney Disease: No Abnormal Pap Smear: No Neuro/Epilepsy: No Psychiatric Disorders: Yes Other Medical Diseases: No Hepatitis/Liver Disease: No Significant Family History: No Varicosities/Phlebitis: No Trauma/Violence : No Thyroid Dysfunction: No Medical History Comments: Current smoker, Anxiety Hx Daily alcohol use before Hospitalized for ovarian cyst INFECTIOUS HISTORY Gonorrhea: No Genital Herpes: No Chlamydia: No Tuberculosis: No Syphilis: No Hepatitis: No HIV/AIDS Exposure: No Rash or Viral Illness: No HPV: No PHYSICAL EXAM General: Normal HEENT: Normal Neurologic: Normal Thyroid: Normal Heart: Normal Lungs: Normal Breast: Normal Back: Normal Abdomen: Normal Genitourinary Exam: Normal Extremities: Normal DTRs: Normal Pelvic Type: Adequate Vital Signs: Reviewed Details Vital Signs: Elevated b/p, no severe range FETUS A EGA: 29.0 FHR Comments: BSUS showed no blood flow to fetus, no heart tones. Admit Comment: at approximately 29 wks EGA with IUFD and preeclampsia as she has elevated b/p and 100 of protein in urine. Mild presently-but will monitor -Admit to LDR -VS Q 30 min -NPO and IVFs -BSUS showed no blood flow to fetus and no FHT -discussed at length with patient. Answered all questions -IOL via cytotec -Will manage b/p PRN .Currently mild elevation INFORMED CONSENT Informed Consent Obtained: Vaginal Delivery; Risks, Benefits and Alternatives Discussed Signature: with User ID: [email or web address] : with User ID: [email or web address]
[2020-04-14] MEDS ORDERED: MISOPROSTOL 0.1 MG TABLET ONE (20:39)
[2020-04-14] MEDS ORDERED: HYDROMORPHONE HCL INJ/PF 2 MG/ML AMPULE IV PRN (20:53)
[2020-04-14] MEDS ORDERED: PROMETHAZINE HCL INJ 25 MG/1 ML VIAL IV PRN (20:54)
[2020-04-14] MEDS ORDERED: ACETAMINOPHEN 325 MG TABLET PO PRN (20:55)
[2020-04-14 23:51] LABS: RHOGAM DOSE INDICATED 0 VIAL(S)
[2020-04-15] MEDS ORDERED: MISOPROSTOL 0.1 MG TABLET ONE ×2 (00:41→04:54)
[2020-04-15] MEDS ORDERED: HYDROMORPHONE HCL INJ/PF 2 MG/ML AMPULE ONE (00:47)
[2020-04-15] MEDS: MISOPROSTOL 0.2 MG TABLET PV SCH (01:24)
[2020-04-15] MEDS ORDERED: FENTANYL/BUPIVACAINE/NS/PF 300 MCG/150 ML RTUINJ EPI ONE (02:13)
[2020-04-15] MEDS ORDERED: ROPIVACAINE HCL 0.2% INJ/PF (2 MG/ML) 20 ML SDV ONE (02:13)
[2020-04-15] MEDS ORDERED: EPHEDRINE SULFATE INJ 50 MG/1 ML AMPULE ONE (02:13)
[2020-04-15] MEDS ORDERED: MISOPROSTOL 0.2 MG TABLET ONE ×3 (04:54→10:16)
[2020-04-15] MEDS ORDERED: ROPIVACAINE HCL 0.5% INJ/PF (5 MG/1 ML) 30 ML SDV ONE (07:16)
[2020-04-15] MEDS ORDERED: MISOPROSTOL 0.2 MG TABLET PV ONE (09:05)
[2020-04-15] MEDS ORDERED: OXYTOCIN 10 UNIT/ML VIAL ONE (10:15)
[2020-04-15] MEDS ORDERED: LIDOCAINE 1% INJ-PF (10 MG/ML) 30 ML SDV ONE (10:16)
[2020-04-15] MEDS ORDERED: OXYTOCIN/0.9 % SODIUM CHLORIDE 30 UNIT/500 ML RTUINJ ONE (10:16)
[2020-04-15] MEDS ORDERED: OXYTOCIN/0.9 % SODIUM CHLORIDE 30 UNIT/500 ML RTUINJ IV PRN (10:39)
[2020-04-15] MEDS ORDERED: BENZOCAINE/MENTHOL AEROSOL SPRAY 56 ML TOP PRN (10:39)
[2020-04-15] MEDS ORDERED: ACETAMINOPHEN WITH CODEINE #3 TABLET PO PRN ×2 (10:39)
[2020-04-15] MEDS ORDERED: DIPH/PERTUSS(ACELL)/TETANUS VAC/PF 0.5 ML SYR (>=10YO) IM PRN (10:39)
[2020-04-15] MEDS ORDERED: MEASLES,MUMPS&RUBELLA VACC/PF 0.5 ML VIAL SUBCUT PRN (10:39)
[2020-04-15] MEDS ORDERED: IBUPROFEN 800 MG TABLET PO ONE (10:55)
[2020-04-15] MEDS ORDERED: IBUPROFEN 800 MG TABLET ONE (11:05)
--- NOTE | 2020-04-15 12:41 | Delivery Summary ---
Del Sum A-C Datetime Report Generated by CPN: 04/15/2020 12:41 DELIVERY PERSONNEL DELIVERY PERSONNEL: [id number] Delivery Doctor:: Cecilia Vallejo MD Nurse Shipping Checker Certified:: Mignon Bullard CNM Labor and Delivery Nurse:: Ellen Franks RNanesthesiology crna Nurse:: AURELIANO Knight Additional Personnel: : Ophelia Mckinney, RN MATERNAL INFORMATION Delivery Anesthesia: Epidural Medications After Delivery: Pitocin 30 Units in 500ml NS/D5W Estimated Blood Loss (ml): 50 Delivery QBL: 50 Maternal Complications: None Provider Comments: Urge to push, delivered a non viable female thru a 8cm cervix spontaneous, small placenta delivered by Dr. Vallejo, placenta to lab, FFFM, scant bleeding, Pitocin started, massage, discharge home this afternoon if pt is stable per Dr. Vallejo pt desires to hold baby, hsb at BS, asking appropriate questions, epidural in place, will dc and remove marie LABOR SUMMARY EDC: 06/30/2020 00:00 No. Babies in Womb: 1 Attempted: No Labor Anesthesia: Epidural LABOR INFORMATION Reason for Induction: Demise Onset of Labor: 04/15/2020 07:00 Complete Dilatation: 04/15/2020 10:10 Cervical Ripening Agents: Cytotec @ Oxytocin: N/A Group B Beta Strep: negative Antibiotics # of Doses: n/a Name of Antibiotic Given: n/a Steroids Given: None Reason Steroids Not Administered: Not Applicable MEMBRANES Membranes Rupture Method: Spontaneous Rupture of Membranes: 04/15/2020 10:10 Length of Rupture (hr): 0.02 Amniotic Fluid Color: Bloody Amniotic Fluid Amount: Scant Amniotic Fluid Odor: Normal STAGES OF LABOR Stage 1 hr: 3 Stage 1 min: 10 Stage 2 hr: 0 Stage 2 min: 1 Stage 3 hr: 0 Stage 3 min: 18 Total Time in Labor hr: 3 Total Time in Labor min: 29 VAGINAL DELIVERY Episiotomy: None Laceration Extension #1: N/A Laceration Repair: Not Applicable Sponge Count Correct: Yes CSECTION DELIVERY Primary Indication: N/A Secondary Indication: N/A CSection Incidence: N/A Labor: N/A Elective: N/A CSection Incision: N/A BABY A INFORMATION Delivery Date/Time: 04/15/2020 10:11 Method of Delivery: Vaginal Born in Route : No : N/A Forceps: N/A Vacuum Extraction: N/A Shoulder Dystocia : No PRESENTATION/POSITION BABY A Presentation: Cephalic Cephalic Presentation: Vertex Breech Presentation: N/A PLACENTA INFORMATION BABY A Placenta Delivery Time : 04/15/2020 10:29 Placenta Method of Delivery: Spontaneous Placenta Status: Delivered INFANT INFORMATION BABY A Gestational Age at Delivery: 29.1 Gestational Status: - <34 Weeks Outcome : Stillborn Infant Sex: Female WEIGHT/LENGTH BABY A Birthweight (gm): 743 Weight (lb): 1 Infant Weight (oz): 10 Infant Length (in): 13.75 Infant Length (cm): 34.93 CORD INFORMATION BABY A No. Cord Vessels: 3 Nuchal Cord : N/A Cord Blood Taken: N/A Infant Suction: None ASSESSMENT BABY A Skin to Skin: No BABY B INFORMATION : N/A
--- NOTE | 2020-04-15 12:41 | Birth Certificate Data ---
Cert Data Datetime Report Generated by CPN: 04/15/2020 12:41 CERTIFICATE DATA Delivery Provider: Cecilia Vallejo MD (04/08/2020 10:33:Ellen Franks RN) 48a. Number of Prev Live Births: 0 (04/08/2020 10:33:Liset Lozada RN) 48b. Now Livin (04/08/2020 10:33:Saige Diop RN) 48c. Live Births Now : 0 (04/08/2020 10:33:QS system process) 48e. Losses: 2 (04/08/2020 10:33:Saige Diop RN) 48f. Date of Last Preg Loss: 02/02/2015 00:00 (04/08/2020 10:33:Saige Diop RN) RISK FACTORS IN THIS 49a. Diabetes: No (04/08/2020 10:33:Ellen Franks RN) 49b. Hypertension: No (04/08/2020 10:33:Ellen Franks RN) Type of Hypertension: Gestational (PIH, Pre-eclampsia) (04/08/2020 10:33:Ellen Franks RN) 49c. Previous Births: 0 (04/08/2020 10:33:Saige Diop RN) 49d. Stillborns: No (04/08/2020 10:33:Ellen Franks RN) 49d. IUGR: No (04/08/2020 10:33:Ellen Franks RN) 49e. Infertility Treatment: No (04/08/2020 10:33:Ellen Franks RN) 49f. Previous Cesareans: 0 (04/08/2020 10:33:Saige Diop RN) Mother's Height 50b. Height Inches: 65 (04/14/2020 18:29:QS system process) Mother's Weight 51a. Pre- Weight (lbs): 170 (04/08/2020 10:33:Liset Lozada RN) 51b. Weight at Delivery (lbs): 200 (04/14/2020 18:30:QS system process) Infections Present/Treated 53a. Gonorrhea: No (04/08/2020 10:33:Ellen Franks RN) Results this Hospital Visit : Negative (04/08/2020 10:33:Saige Diop RN) 53b. Syphilis: No (04/08/2020 10:33:Ellen Franks RN) Results this Hospital Visit: NONREACTIVE (04/14/2020 19:01:QS system process) 53c. Chlamydia: No (04/08/2020 10:33:Ellen Franks RN) Results this Hospital Visit: Negative (04/08/2020 10:33:Saige Diop RN) 53d. Hepatitis B: No (04/08/2020 10:33:Ellen Franks RN) Results this Hospital Visit: Negative (04/08/2020 10:33:Saige Diop RN) 53e. Hepatitis C: Negative (04/08/2020 10:33:Saige Diop RN) 53h. Mother Tested for HBsAG: Yes (04/08/2020 10:33:Saige Diop RN) 53i. Date Tested: 11/12/2019 00:00 (04/08/2020 10:33:Saige Diop RN) 53j. Test Result: Negative (04/08/2020 10:33:Saige Diop RN) Obstetric Procedures 54a, b, c. Obstetric Procedures: Ultrasound (04/08/2020 10:33:Liset Lozada RN) Cigarette Smoking Cigarette Smoking: Current Everyday Smoker. [id number] (04/08/2020 10:33:Saige Diop RN) 55a. 3 Months Before Preg - Ci (04/08/2020 10:33:Ellen Franks RN) 55a. Packs: 0 (04/08/2020 10:33:Ellen Franks RN) 55b. 1st Trimester of Preg- Ci (04/08/2020 10:33:Ellen Franks RN) 55b. Packs: 0 (04/08/2020 10:33:Ellen Franks RN) 55c. 2nd Trimester of Preg- Ci (04/08/2020 10:33:Saige Diop RN) 55c. Packs: 0 (04/08/2020 10:33:Ellen Franks RN) Onset of Labor 56a. PROM >12 Hrs: 0.02 (04/08/2020 10:33:QS system process) 56b. Precipitous Labor <3 Hrs: 3 (04/08/2020 10:33:QS system process) 56c. Prolonged Labor > 20 Hrs: 3 (04/08/2020 10:33:QS system process) 57a. Induction of Labor: N/A (04/08/2020 10:33:Ellen Franks RN) 57a. Induction of Labor: Cytotec @ (04/15/2020 09:19:Ellen Franks RN) 57c. Non-Vertex Presentation A: Vertex (04/08/2020 10:33:Ellen Franks RN) 57d. Steroids - Lung Mat: None (04/08/2020 10:33:Ellen Franks RN) 57d. Steroids - Lung Mat: Celestone 12mg IM - Dose 1 (04/08/2020 11:23:August PERCY Diop) 57d. Steroids - Lung Mat: Not Applicable (04/08/2020 10:33:Ellen Franks RN) 57g. Moderate/Heavy Meconium: Bloody (04/08/2020 10:33:Ellen Franks RN) 57h. Intolerance of Labor: N/A (04/08/2020 10:33:Ellen Franks RN) : N/A (04/08/2020 10:33:Ellen Franks RN) 57i. Epidural/Spinal Anesthesia: Epidural (04/08/2020 10:33:Ellen Franks RN) Method of Delivery 58a. Forceps - Unsuccessful A: N/A (04/08/2020 10:33:Ellen Franks RN) 58b. Vacuum - Unsuccessful A: N/A (04/08/2020 10:33:Ellen Franks RN) 58c. Presentation at 58c. Presentation at - A : Vertex (04/08/2020 10:33:Ellen Franks RN) 58c. Presentation at - A : N/A (04/08/2020 10:33:Ellen Franks RN) 58c. Presentation at - A : Cephalic (04/15/2020 09:19:Ellen Franks RN) Final Route and Method of Del 58d. Baby A Route/Delivery: Vaginal (04/08/2020 10:33:Ellen Franks RN) 58e. Trial of Labor Attempted: No (04/08/2020 10:33:Ellen Franks RN) 58e. Trial of Labor Attempted A: N/A (04/08/2020 10:33:Ellen Franks RN) 58e. Trial of Labor Attempted B: N/A (04/08/2020 10:33:Ellen Franks RN) Birthweight Baby A: 743 (04/08/2020 10:33:Ellen Franks RN) 60a. Pounds : 1 (04/08/2020 10:33:QS system process) 60b. Ounces: 10 (04/08/2020 10:33:QS system process) 61. GA at Delivery Baby A: 29.1 (04/08/2020 10:33:Ellen Franks RN) : - <34 Weeks (04/08/2020 10:33:QS system process)
[2020-04-15] MEDS ORDERED: OXYCODONE-ACETAMINOPHEN 5-325 MG TABLET ONE (13:12)
[2020-04-15] MEDS ORDERED: OXYCODONE-ACETAMINOPHEN 5-325 MG TABLET PO ONE (13:30)
[2020-04-15] MEDS ORDERED: IBUPROFEN 800 MG TABLET PO SCH (14:00)
[2020-04-15 14:52] VITALS: BP 144/67
[2020-04-16 14:37] LABS: PTT-LA 33.4 sec (0.0-51.9); THROMBIN TIME 15.8 sec (0.0-23.0)
[2020-04-17 07:11] LABS: LUPUS PANEL INTERPRETATION Comment: (.)
[2020-04-17 07:12] LABS: ANTICARDIOLIPIN IGA AB <9 APL U/mL (0-11); ANTICARDIOLIPIN IGG AB <9 GPL U/mL (0-14); ANTICARDIOLIPIN IGM AB 13 MPL U/mL (0-12); PARVOVIRUS B19 IGG AB 0.3 index (0.0-0.8); PARVOVIRUS B19 IGM AB 0.1 index (0.0-0.8)
[2020-04-19 15:48] LABS: CANNABINOID CONFIRMATION UR Positive (.)
== END 2020-04-15 18:34 | disposition home or self-care (01) | DRG 807 ==
LOC: LC 18:18 → LR 18:31
PROVIDERS: ADMIT Obstetrics & Gynecology; ATTEND Obstetrics & Gynecology
PROC: 10E0XZZ Delivery of Products of Conception, External Approach (ICD-10-PCS; principal; 2020-04-15)
DX: O36.4XX0 Maternal care for intrauterine death, not applicable or unspecified (principal); Z37.1 Single stillbirth; O99.334 Smoking (tobacco) complicating childbirth; F17.210 Nicotine dependence, cigarettes, uncomplicated; O14.14 Severe pre-eclampsia complicating childbirth; O99.344 Other mental disorders complicating childbirth; F41.9 Anxiety disorder, unspecified; Z3A.29 29 weeks gestation of pregnancy
CPT/HCPCS: 1967; 36415; 80053; 80307; 80349; 80361; 81001; 82570; 83520; 83615; 84156; 84443; 84550; 85025; 85460; 86147; 86225; 86235; 86592; 86747; 86850; 86870; 86900; 86901; 88307; 94760; G0480; J1170; J2590; J2790; J2795; J3010; J3490